=== PATIENT | male | born 1965 | race Two or more races ===

== ENCOUNTER 2022-08-18 11:12 | Emergency (ER) | payer MEDICAID ==
[~2022-08-18] VITALS: Ht 167.6 cm; Wt 95.5 kg
[2022-08-18 11:40] VITALS: BP 138/96
[2022-08-18] MEDS ORDERED: FLUORESCEIN SOD OPTH TEST STRIP OP ONE (13:30)
[2022-08-18] MEDS ORDERED: CIP03OS LEFTEYE (13:53)
== END 2022-08-18 14:19 | disposition home or self-care (01) ==
LOC: ER 11:12 → EDBD 11:12 → ER 14:19
DX: S05.02XA Injury of conjunctiva and corneal abrasion without foreign body, left eye, initial encounter (principal); H11.32 Conjunctival hemorrhage, left eye; Z79.899 Other long term (current) drug therapy; W22.8XXA Striking against or struck by other objects, initial encounter; Y92.89 Other specified places as the place of occurrence of the external cause; Y93.89 Activity, other specified; Y99.8 Other external cause status